=== PATIENT | female | born 1980 | race African-American/Black ===

== ENCOUNTER 2016-05-15 23:54 | Emergency (ER) | payer OTHER ==
[~2016-05-15] VITALS: Ht 149.9 cm; Wt 79.3 kg
[~2016-05-15 23:54] MED LIST: AMOX TR-K CLV1 EAC4 PO; DIAZEPAM2 MG PO; DURAGESIC12 MCG TD; HYDROCODON-ACE1 EAC7 PO; NOHOMEMEDS; NORCO 5/3251 TABLET PO; PHENERGAN DM SYR1 ML PO; VENTOLIN HFA18 GM IH; ZOFRAN4 MG PO
[2016-05-16] MEDS ORDERED: NAPROSYN500 MG PO (00:47)
[2016-05-16 00:56] VITALS: BP 148/92
== END 2016-05-16 00:57 | disposition home or self-care (01) ==
LOC: EME 23:54
DX: M65.9 Synovitis and tenosynovitis, unspecified (principal)
CPT/HCPCS: 73080; 99281; 99283

== ENCOUNTER → 2016-10-10 | Outpatient (CLI) | payer OTHER ==
[~2016-10-10] MED LIST changes: +NAPROSYN500 MG PO
== END | disposition home or self-care (01) ==
DX: R13.11 Dysphagia, oral phase (principal)
CPT/HCPCS: 92611 GN

== ENCOUNTER 2016-12-20 01:22 | Emergency (ER) | payer OTHER ==
[~2016-12-20] VITALS: Ht 149.9 cm; Wt 76.5 kg
[2016-12-20] MEDS ORDERED: CLEOCIN300 MG PO (02:53)
[2016-12-20 03:44] VITALS: BP 119/89
== END 2016-12-20 03:44 | disposition home or self-care (01) ==
LOC: EXP 01:22 → EME 01:22 → EXP 03:44
DX: M54.2 Cervicalgia (principal)
CPT/HCPCS: 99281; 99283